=== PATIENT | female | born 1960 | race Caucasian/White ===

== ENCOUNTER 2016-06-26 08:43 | Inpatient (IN) | payer BC ==
[2016-06-26] MEDS ORDERED: NORMAL SALINE 10 ML SYRINGE FLUSH IVP PRN ×3 (08:49→14:13)
[2016-06-26] MEDS ORDERED: Sodium Chloride 0.9% 1,000 ML PRIMARY IV ONE (08:57)
[2016-06-26 09:10] LABS: BASOPHILS # (AUTO) 0.06 10*3/UL; BASOPHILS % (AUTO) 0.4 % (0-1); EOSINOPHILS # (AUTO) 0.02 10*3/UL; EOSINOPHILS % (AUTO) 0.1 % (0-8); HEMATOCRIT 38.7 % (37.0-47.0); LYMPHOCYTES # (AUTO) 1.53 10*3/uL; MEAN CORPUSCULAR HGB CONC 33.6 g/dL (33-37); MEAN CORPUSCULAR VOLUME 89.4 FL (81-99); MEAN PLATELET VOLUME 9.5 FL (7.4-12.2); MONOCYTES # (AUTO) 1.52 10*3/UL (0.3-0.8); MONOCYTES % (AUTO) 10.7 % (5-15); NEUTROPHILS # (AUTO) 11.09 10*3/UL; NEUTROPHILS % (AUTO) 77.9 % (50-80); RED BLOOD COUNT 4.33 10^6/uL (4.20-5.40)
[2016-06-26 09:17] LABS: BLOOD UREA NITROGEN 12 mg/dL (7-22); BUN/CREATININE RATIO 17.14 (6-20); CALCIUM 8.9 mg/dL (8.7-10.7); EST GLOMERULAR FILTRATION > 60 (>60 ml/min/1.73m(2)); SERUM ALBUMIN 3.8 g/dL (3.5-4.8)
[2016-06-26 09:19] LABS: PLATELET MORPHOLOGY COMMENT NORMAL MORPHOLOGY (NORM); RBC MORPHOLOGY COMMENT NORMAL MORPHOLOGY (NORM); WBC MORPHOLOGY COMMENT NORMAL MORPHOLOGY (NORM)
[2016-06-26] MEDS ORDERED: Sodium Chloride 0.9% 2,000 ML PRIMARY IV ONE (09:20)
[2016-06-26] MEDS ORDERED: cefTRIAXone Inj 1 GM in Sodium Chloride 0.9% 100 ML IV ONE (09:21)
[2016-06-26 09:41] LABS: CLARITY,URINE CLOUDY (CLEAR); COLOR,URINE YELLOW; URINE SAMPLE TYPE CLEAN CATCH URINE
[2016-06-26 09:42] LABS: BILIRUBIN,URINE SMALL (NEG); GLUCOSE, URINE (UA) NEGATIVE (NEG); NITRATE,URINE POSITIVE (NEG); OCCULT BLOOD,URINE LARGE (NEG); PROTEIN,URINE >300 mg/dl (NEG); RBC,URINE >100 /hpf; SQUAMOUS EPITHELIAL CELL,UR RARE; WBC,URINE >100
--- NOTE | 2016-06-26 09:42 | PDOC ---
Female Problem HPI - General Chief Complaint: Genitourinary Complaint Stated Complaint: POSS PYLO Date Seen by Provider: 06/26/16 Time Seen by Provider: 09:40 - History of Present Illness Initial Comments: This patient is a very nice 56-year-old woman who comes into the emergency department complaining of abdominal discomfort especially low in her abdomen also some flank pain some fever and increasing urinary cloudiness to the point of actually having urinary bleeding today as well. She has not had substantial urinary tract infections in the past but does feel that this is likely now. She denies any bowel changes. She denies any hematochezia or hematemesis or other concerning GI features. - Patient Home Medications Home Medications: Home Medications Aspirin/Acetaminophen/Caffeine [Excedrin Extra Strength Caplet] 2 each PO ASDIR PRN tab 01/10/16 Estrogen,Con/M-Progest Acet [Prempro 0.625-2.5 Mg Tablet] 1 tab PO DAILY #30 tab 01/17/16 Bisacodyl [Dulcolax] 5 mg PO PRN PRN 06/26/16 - Patient Allergies Allergies/Adverse Reactions: Allergies Allergy/AdvReac Type Severity Reaction Status Date / Time Penicillins Allergy Intermediate Rash/Hives Verified 06/26/16 09:13 Past Medical History - heen HEENT History: Dentures/Partials Cardiovascular History: Hyperlipidemia Respiratory History: Denies History Gastrointestinal History: Denies History Genitourinary History: Denies History Endocrine History: Denies History Musculoskeletal History: Back Pain Prosthesis or Implant: Yes (SPINE FUSED, LOWER BACK HW) Neurological History: Migraines Additional Neurological History: YESTERDAY MIGRAINE Blood Disorders: Denies History Psychiatric History: Denies History History of Sexually Transmitted Diseases: No Cancer History: Renal, Skin Cancer Treatment / Date(s) of Treatment: MALIGNANT MELONOMA-REMOVED History of MDRO: No History of Other Communicable Diseases: No Alcohol Use: None Substance Use Type: None Previous Surgical History: Yes Type / Date of Surgery: D&C/ VERTEBRAL FUSION X 3/ HARDWARE REMOVAL FROM BACK FUSION/ RIGHT RCR/ SKIN CA REMOVED Anesthesia Reactions: Yes (PONV) Malignant Hyperthermia: No Significant Family History: No pertinent family hx Past Medical History Reviewed: Reviewed - No Changes ROS - Limitations ROS Limitations: No Limitations Constitution: REPORTS: Denies Symptoms Cardiovascular: REPORTS: Denies Cardiac Symptoms Respiratory: REPORTS: Denies Resp Symptoms Neurological: REPORTS: Denies Neuro Symptoms Female Genitourinary Exam - General Appearance General Appearance: POSITIVE: Alert, Cooperative, No Acute Distress - HEENT HEENT: POSITIVE: Head Inspection Nml, Eyes Inspection Nml, Ears Inspection Nml - Neck Neck: POSITIVE: Normal Inspection, No Apparent Injury - Respiratory Respiratory: POSITIVE: No Respiratory Distress - Abdomen Abdomen: POSITIVE: Other (Low abdominal tenderness and CVA tenderness bilaterally) - Neurological / Psychological Neurological: POSITIVE: Affect Apporpriate, Oriented X3 Female Genitourinary Progress - Results Reviewed by me Lab Results Reviewed: Yes Lab Results:: Laboratory Results 06/26/16 06/26/16 06/26/16 Range/Units 09:00 09:05 09:22 WBC 14.25 H (4.8-10.8) 10^3/uL RBC 4.33 (4.20-5.40) 10^6/uL Hgb 13.0 (12.0-16.0) g/dL Hct 38.7 (37.0-47.0) % MCV 89.4 (81-99) FL MCH 30.0 (27-31) PG MCHC 33.6 (33-37) g/dL RDW Std Deviation 46.0 (39-50) fL RDW Coeff of [place] 14.3 (11.5-14.5) % Plt Count 235 (140-350) 10*3/uL MPV 9.5 (7.4-12.2) FL Immature Gran % (Auto) 0.2 (0-5) % Neut % (Auto) 77.9 (50-80) % Lymph % (Auto) 10.7 (10-50) % [place] % (Auto) 10.7 (5-15) % Eos % (Auto) 0.1 (0-8) % Baso % (Auto) 0.4 (0-1) % Immature Gran # (Auto) 0.03 10*3/UL Neut # (Auto) 11.09 10*3/UL Lymph # (Auto) 1.53 10*3/uL [place] # (Auto) 1.52 H (0.3-0.8) 10*3/UL Eos # (Auto) 0.02 10*3/UL Baso # (Auto) 0.06 10*3/UL WBC Morphology Comment Normal morphology (NORM) Plt Morphology Comment Normal morphology (NORM) RBC Morph Comment Normal morphology (NORM) PT 10.3 (9.7-11.4) secs INR 1.00 (0.00-5.90) N/A Sodium 137 (135-145) meq/L Potassium 3.6 L (3.8-5.2) meq/L Chloride 104 (98-112) meq/L Carbon Dioxide 20 L (23-33) meq/L Anion Gap 13 (5-20) BUN 12 (7-22) mg/dL Creatinine 0.7 (0.50-1.20) mg/dL Estimated GFR > 60 (>60 ml/min/1.73m(2)) BUN/Creatinine Ratio 17.14 (6-20) Glucose 127 H (78-110) mg/dL Calculated Osmolality 285.0 (267-292) mOsm/kg Lactic Acid 0.8 (0.70-2.10) MMOL/L Calcium 8.9 (8.7-10.7) mg/dL Total Bilirubin 0.8 (0.3-1.2) mg/dL AST 29 (8-39) IU/L ALT 40 (9-52) IU/L Alkaline Phosphatase 158 H (38-126) IU/L Total Protein 7.4 (6.1-8.0) g/dL Albumin 3.8 (3.5-4.8) g/dL Globulin 3.5 (2.50-4.10) g/dL Albumin/Globulin Ratio 1.00 L (1.3-2.0) mg/g Ur Collection Type Clean catch urine Urine Color Yellow Urine Clarity Cloudy (CLEAR) Urine pH 6.0 (5.0-8.5) Ur Specific [place] 1.010 (1.005-1.030) U Specif Grav (Refrac) 1.010 Urine Protein >300 (NEG) mg/dl Urine Glucose (UA) Negative (NEG) mg/dL Urine Ketones 15 (NEG) Urine Occult Blood Large (NEG) Urine Nitrate Positive H (NEG) Urine Bilirubin Small (NEG) Urine Urobilinogen 1.0 (0.2) mg/dL Ur Leukocyte Esterase Mo (NEG) Urine RBC >100 (NONE) /hpf Urine WBC >100 (NONE) Ur Squamous Epith Cells Rare (NONE) Ur Renal Epithelial Cell None (NONE) Urine Crystals None Urine Bacteria Moderate (NONE) Urine Casts None Urine Mucus Few (NONE) Urine Trichomonas None (NONE) Urine Yeast None (NONE) Urine HCG, Qual Negative - Patient's Progress MDM / ED Course: Patient appears to have substantial pyelonephritis with bilateral flank pain and low abdominal pain requiring some IV narcotic medication to control those symptoms. She also came in tachycardic but this is improved with a couple liters of fluid bolus. She started on Rocephin therapy as soon as her blood cultures and UA were taken. She has leukocytosis as well. I have discussed her case with the hospitalist who agrees to admit her to the hospital for further management. Patient Care Time - Estimated PCT Patient Care Time (In Minutes): 30 Vital Signs - Recent Vital Signs Vital Signs: Vital Signs (Last 8 hours) Temp Pulse Resp BP Pulse Ox 06/26/16 08:44 98.9 F 115 H 18 121/92 97 - VS Reviewed Vital Signs Reviewed: Yes Discharge Clinical Impression: Urinary tract infectious disease, Pyelonephritis Discharge Disposition: Admit to Inpatient Condition: Fair Follow Up With: BRONWYN CAZARES FNP [Primary Care Provider] - Date Decision to Admit to Inpatient: 06/26/16 Time Decision to Admit to Inpatient: 10:53
[2016-06-26 09:43] LABS: BACTERIA,URINE MODERATE
[2016-06-26] MEDS ORDERED: Potassium Chloride 20 mEq 20 MEQ in Premix 1 BAG IV ONE (09:43)
[2016-06-26] MEDS ORDERED: KETOROLAC 15 MG/1 ML VIAL IVP ONE (10:06)
[2016-06-26] MEDS ORDERED: MORPHINE SULFATE 4 MG/1 ML IVP ONE (10:06)
[2016-06-26] MEDS ORDERED: LIDOCAINE W/ SODIUM BICARB 0.5 ML SYR SUBD PRN (14:13)
--- NOTE | 2016-06-26 14:13 | PDOC ---
History and Physical - History of Present Illness Date and Time of Service: 06/26/2016 to 20 5 PM Chief Complaint: Cloudy urine of 6 days' duration, abdominal pain and back pain off 1-2 days duration History of Present Illness: This is a 56 years old female with no significant past medical history who came into the hospital with history of cloudy urine that started about 6 days ago in addition started to have abdominal pain and flank pain of 1-2 days duration in addition she did report more reddish urine since yesterday. Because of that she came into the ER. Evaluation suggested pyelonephritis and hence the admission. She denied vomiting, there is no diarrhea, there is no chest pain or shortness of breath. Past Medical History Medical History: History of for melanoma that was removed from her forearm Surgical History: 1. History of back surgery, fusion for scoliosis. 2. Rotator cuff repair. 3. Removal of melanoma 2000 Family History: Reviewed an Not Pertinent Past Social History: She is smoker smoke pack a day, occasionally drinks no drugs. Tobacco Use: Current Every Day Smoker Do you dip or chew tobacco: No Substance Use Type: None Alcohol Use: Occasionally Medication / Allergies Home Medications: Home Medications Medication Instructions Recorded Confirmed Type Aspirin/Acetaminophen/Caffeine 2 each PO ASDIR PRN tab 01/10/16 06/26/16 History [Excedrin Extra Strength Caplet] Bisacodyl [Dulcolax] 5 mg PO PRN PRN 06/26/16 06/26/16 History Allergies/Adverse Reactions: Allergies Allergy/AdvReac Type Severity Reaction Status Date / Time Penicillins Allergy Intermediate Rash/Hives Verified 06/26/16 13:46 Review of Systems - Review of Systems All Systems: Reviewed & No Additional Complaints Except as Stated Exam - Vitals Vital Signs: Vital Signs Temperature 99.8 F Temperature Source Temporal Artery Scan Pulse Rate [Pulse Oximeter] 84 Pulse Rate 103 Respiratory Rate 18 Blood Pressure [Left Arm] 126/83 Blood Pressure 122/87 Pulse Ox 96 Oxygen Delivery Method Room Air Height 5 ft 7 in Weight 158 lb 12.8 oz - General General Appearance: POSITIVE: No Acute Distress, Cooperative, Thin - Head Head Exam: POSITIVE: Normal Inspection, Atraumatic - Eye Eye Exam: POSITIVE: Normal Appearance - ENT ENT Exam: POSITIVE: Normal Exam - Neck Neck Exam: POSITIVE: Normal Inspection - Respiratory Respiratory Exam: POSITIVE: Clear to Auscultation - Bilaterally - Cardiovascular Cardiovascular Exam: POSITIVE: RRR - GI/Abdominal GI/Abdominal Exam: POSITIVE: Normal Bowel Sounds, Non Distended, Soft Additional GI/Abdominal Exam Details: CVA tenderness noted more on the left. Some lower minimal abdominal tenderness noted - Rectal Rectal Exam: POSITIVE: Deferred - External Exam: POSITIVE: Deferred Exam: POSITIVE: Deferred - Extremities Extremities Exam: POSITIVE: Normal Inspection - Back Back Exam: POSITIVE: Normal Inspection - Neurological Neurological Exam: POSITIVE: Alert, Oriented x 3, CN II-XII Intact, Moves All Extremities Equally - Psychiatric Psychiatric Exam: POSITIVE: Normal Affect - Integumentary Integumentary Exam: POSITIVE: Normal Color Results - Labs CBC and BMP: 06/26/16 09:00 06/26/16 09:00 Assessment and Plan - Patient Problems (1) Pyelonephritis Current Visit: Yes Status: Acute Comment: Patient was started on antibiotics, will continue antibiotics and pain medications and fluid and will wait for culture result. We'll also do CT of the abdomen to rule out stones.
[2016-06-26] MEDS ORDERED: oxyCODONE-ACETAMINOPHEN 5-325 TAB PO PRN (14:21)
[2016-06-26] MEDS: MORPHINE SULFATE 2 MG/1 ML IVP PRN (14:48)
[2016-06-26] MEDS: Sodium Chloride 0.9% 1,000 ML PRIMARY IV SCH ×3 (14:52→22:23)
[2016-06-26] MEDS ORDERED: ONDANSETRON 4 MG/2 ML VIAL IVP PRN (16:05)
[2016-06-26] MEDS ORDERED: Senna Tab 8.6 MG TAB PO PRN (16:06)
[2016-06-26] MEDS: DOCUSATE 100 MG CAPSULE PO SCH ×2 (16:46→20:29)
[2016-06-26] MEDS: MAGNESIUM 400 MG/5 ML - 30 ML (MILK OF MAGNESIA) PO PRN (16:46)
[2016-06-26] MEDS: Metoclopramide Inj 10 MG/2 ML VIAL IVP PRN (17:59)
[2016-06-26] MEDS: cefTRIAXone Inj 1 GM in Sodium Chloride 0.9% 100 ML IV SCH (22:26)
[2016-06-27] MEDS: KETOROLAC 15 MG/1 ML VIAL IVP SCH ×4 (01:15→19:02)
[2016-06-27] MEDS: MORPHINE SULFATE 2 MG/1 ML IVP PRN (01:15)
[2016-06-27] MEDS: Metoclopramide Inj 10 MG/2 ML VIAL IVP PRN (01:16)
[2016-06-27] MEDS: Sodium Chloride 0.9% 1,000 ML PRIMARY IV SCH ×3 (02:01→22:27)
[2016-06-27 05:39] LABS: BASOPHILS # (AUTO) 0.04 10*3/UL; BASOPHILS % (AUTO) 0.3 % (0-1); EOSINOPHILS # (AUTO) 0.04 10*3/UL; EOSINOPHILS % (AUTO) 0.3 % (0-8); HEMATOCRIT 32.8 % (37.0-47.0); HEMOGLOBIN 10.8 g/dL (12.0-16.0); LYMPHOCYTES # (AUTO) 1.99 10*3/uL; MEAN CORPUSCULAR HEMOGLOBIN 29.7 PG (27-31); MEAN CORPUSCULAR HGB CONC 32.9 g/dL (33-37); MEAN CORPUSCULAR VOLUME 90.1 FL (81-99); MEAN PLATELET VOLUME 9.7 FL (7.4-12.2); MONOCYTES # (AUTO) 1.62 10*3/UL (0.3-0.8); MONOCYTES % (AUTO) 13.6 % (5-15); NEUTROPHILS # (AUTO) 8.23 10*3/UL; NEUTROPHILS % (AUTO) 68.8 % (50-80); RED BLOOD COUNT 3.64 10^6/uL (4.20-5.40)
[2016-06-27 05:40] LABS: PLATELET MORPHOLOGY COMMENT NORMAL MORPHOLOGY (NORM); RBC MORPHOLOGY COMMENT NORMAL MORPHOLOGY (NORM); WBC MORPHOLOGY COMMENT NORMAL MORPHOLOGY (NORM)
[2016-06-27 08:06] LABS: BLOOD UREA NITROGEN 10 mg/dL (7-22); BUN/CREATININE RATIO 14.28 (6-20); EST GLOMERULAR FILTRATION > 60 (>60 ml/min/1.73m(2))
--- NOTE | 2016-06-27 09:37 | DI ---
CT ABDOMEN/PELVIS W/O CONTRAST,06/26/2016 2:12 PM: Clinical History: Flank pain and fever. Previous Exam: None at this facility. Findings: Multiple helically acquired CT images are obtained through the abdomen and pelvis without contrast, a nd demonstrate clear lungs. The liver, gallbladder, spleen, adrenals and visualized portions of the pancreas are unremarkable. There is a left renal stone measuring 9 x 5 mm within the inferior pole of the left kidney. This may be within the collecting system. Peripheral vascular calcifications are seen. There is no mesenteric nor retroperitoneal lymphadenopathy. There is no free air nor free fluid. Postsurgical changes are seen consistent with screw and plate fixation of the posterior thoracic spin e. There is no obstructive uropathy. The urinary bladder is unremarkable. The appendix is normal. Impression: 1. Left renal stone may be within the inferior left renal collecting system. There is no perinephric fat stranding or other findings to suggest acute pyelonephritis however, CT is less sensitive than ur inalysis.
[2016-06-27] MEDS: DOCUSATE 100 MG CAPSULE PO SCH ×2 (09:48→20:31)
[2016-06-27] MEDS: cefTRIAXone Inj 1 GM in Sodium Chloride 0.9% 100 ML IV SCH (10:29)
[2016-06-27] MEDS: MAGNESIUM 400 MG/5 ML - 30 ML (MILK OF MAGNESIA) PO PRN (10:34)
--- NOTE | 2016-06-27 12:10 | PDOC(PROG) ---
Interval History: Patient is doing the okay her blood pressure is trending down heart rates going up I believe she is in mild sepsis secondary to bacteremia and pyelonephritis denies chest pain nausea vomiting Objective : Data - Labs CBC and BMP: 06/27/16 05:26 06/27/16 05:26 Labs - Last 24 Hours: Laboratory Results 06/27/16 Range/Units 05:26 WBC 11.95 H (4.8-10.8) 10^3/uL RBC 3.64 L (4.20-5.40) 10^6/uL Hgb 10.8 L (12.0-16.0) g/dL Hct 32.8 L (37.0-47.0) % MCV 90.1 (81-99) FL MCH 29.7 (27-31) PG MCHC 32.9 L (33-37) g/dL RDW Std Deviation 46.2 (39-50) fL RDW Coeff of [place] 14.4 (11.5-14.5) % Plt Count 208 (140-350) 10*3/uL MPV 9.7 (7.4-12.2) FL Immature Gran % (Auto) 0.3 (0-5) % Neut % (Auto) 68.8 (50-80) % Lymph % (Auto) 16.7 (10-50) % [place] % (Auto) 13.6 (5-15) % Eos % (Auto) 0.3 (0-8) % Baso % (Auto) 0.3 (0-1) % Immature Gran # (Auto) 0.03 10*3/UL Neut # (Auto) 8.23 10*3/UL Lymph # (Auto) 1.99 10*3/uL [place] # (Auto) 1.62 H (0.3-0.8) 10*3/UL Eos # (Auto) 0.04 10*3/UL Baso # (Auto) 0.04 10*3/UL WBC Morphology Comment Normal morphology (NORM) Plt Morphology Comment Normal morphology (NORM) RBC Morph Comment Normal morphology (NORM) Sodium 136 (135-145) meq/L Potassium 3.8 (3.8-5.2) meq/L Chloride 106 (98-112) meq/L Carbon Dioxide 23 (23-33) meq/L Anion Gap 7 (5-20) BUN 10 (7-22) mg/dL Creatinine 0.7 (0.50-1.20) mg/dL Estimated GFR > 60 (>60 ml/min/1.73m(2)) BUN/Creatinine Ratio 14.28 (6-20) Glucose 99 (78-110) mg/dL Calculated Osmolality 280.0 (267-292) mOsm/kg Calcium 8.0 L (8.7-10.7) mg/dL Objective : Exam - General General Appearance: Cooperative - Head Head Exam: Normal Inspection, Normocephalic, Atraumatic - Eye Eye Exam: Normal Appearance, PERRL, EOMI - Respiratory Respiratory Exam: Clear to Auscultation - Bilaterally, Breathing Non Labored, Normal To Percussion, Normal to Percussion and Palpation - Cardiovascular Cardiovascular Exam: RRR, No Murmur, No Clicks, No Gallops - GI/Abdominal GI/Abdominal Exam: Non Tender, Non Distended, Soft - Extremities Extremities Exam: No Clubbing Present, No Edema Present, No Cyanosis Present - Neurological Neurological Exam: Alert, Oriented x 3, CN II-XII Intact - Psychiatric Psychiatric Exam: Normal Affect, Normal Mood Assessment and Plan - Patient Problems (1) Pyelonephritis Current Visit: Yes Status: Acute (2) Urinary tract infectious disease Current Visit: Yes Status: Acute (3) Bacteremia Current Visit: Yes Status: Acute - Assessment / Plan Additional Assessment/Plan Details: #1 urosepsis secondary to UTI #2 pyelonephritis #3 bacteremia I will transfer the patient to the ICU I will put her on vancomycin and Levaquin she is allergic to penicillin. Blood cultures were both positive for gram-negative rods sensitivities pending. We'll give her 1 bolus of IV fluids [address] scans were reviewed patient has a 9 x 5 mm stone in the collecting system no obstruction I spoke to Dr. Reagan urology at present time she does not need a stent if this does pass and gets stuck in the ureter she will need stenting in transfer we will be treating her here since [facility] is on and delivered had no lobe but no telemetry beds or beds whatsoever when I talked to the referral Center
[2016-06-27] MEDS ORDERED: cefTAZidime Inj 2 GM in Sodium Chloride 0.9% 100 ML IV SCH (12:30)
[2016-06-27] MEDS ORDERED: MAGNESIUM 400 MG/5 ML - 30 ML (MILK OF MAGNESIA) PO PRN (12:56)
[2016-06-27] MEDS ORDERED: NORMAL SALINE 10 ML SYRINGE FLUSH IVP PRN (12:56)
[2016-06-27] MEDS ORDERED: LIDOCAINE W/ SODIUM BICARB 0.5 ML SYR SUBD PRN (12:56)
[2016-06-27] MEDS ORDERED: Metoclopramide Inj 10 MG/2 ML VIAL IVP PRN (12:56)
[2016-06-27] MEDS ORDERED: ONDANSETRON 4 MG/2 ML VIAL IVP PRN (12:56)
[2016-06-27] MEDS ORDERED: MORPHINE SULFATE 2 MG/1 ML IVP PRN (12:56)
[2016-06-27] MEDS ORDERED: Senna Tab 8.6 MG TAB PO PRN (12:56)
[2016-06-27] MEDS ORDERED: Sodium Chloride 0.9% 1,000 ML PRIMARY IV ONE (14:03)
[2016-06-27] MEDS: cefTAZidime Inj 2 GM in Sodium Chloride 0.9% 100 ML IV SCH (20:31)
[2016-06-27] MEDS: oxyCODONE-ACETAMINOPHEN 5-325 TAB PO PRN (22:00)
[2016-06-27] MEDS ORDERED: NICOTINE 7 MG /DAY PATCH TRANSDERM ONE (22:58)
[2016-06-27] MEDS: NICOTINE 7 MG /DAY PATCH TRANSDERM SCH (23:35)
[2016-06-28] MEDS: KETOROLAC 15 MG/1 ML VIAL IVP SCH ×2 (01:00→07:25)
[2016-06-28] MEDS: oxyCODONE-ACETAMINOPHEN 5-325 TAB PO PRN (04:00)
[2016-06-28] MEDS: cefTAZidime Inj 2 GM in Sodium Chloride 0.9% 100 ML IV SCH (04:27)
[2016-06-28 05:52] LABS: BASOPHILS # (AUTO) 0.06 10*3/UL; BASOPHILS % (AUTO) 0.7 % (0-1); EOSINOPHILS % (AUTO) 1.1 % (0-8); HEMATOCRIT 30.5 % (37.0-47.0); HEMOGLOBIN 9.8 g/dL (12.0-16.0); LYMPHOCYTES # (AUTO) 2.29 10*3/uL; MEAN CORPUSCULAR HGB CONC 32.1 g/dL (33-37); MEAN CORPUSCULAR VOLUME 90.2 FL (81-99); MEAN PLATELET VOLUME 9.9 FL (7.4-12.2); MONOCYTES # (AUTO) 1.15 10*3/UL (0.3-0.8); MONOCYTES % (AUTO) 12.5 % (5-15); NEUTROPHILS # (AUTO) 5.57 10*3/UL; NEUTROPHILS % (AUTO) 60.6 % (50-80); RED BLOOD COUNT 3.38 10^6/uL (4.20-5.40)
[2016-06-28 05:57] LABS: PLATELET MORPHOLOGY COMMENT NORMAL MORPHOLOGY (NORM); RBC MORPHOLOGY COMMENT NORMAL MORPHOLOGY (NORM); WBC MORPHOLOGY COMMENT NORMAL MORPHOLOGY (NORM)
[2016-06-28 06:03] LABS: BLOOD UREA NITROGEN 10 mg/dL (7-22); BUN/CREATININE RATIO 16.66 (6-20); CALCIUM 7.8 mg/dL (8.7-10.7); EST GLOMERULAR FILTRATION > 60 (>60 ml/min/1.73m(2))
[2016-06-28 06:47] VITALS: RESP 16
[2016-06-28] MEDS: Sodium Chloride 0.9% 1,000 ML PRIMARY IV SCH (07:25)
[2016-06-28] MEDS ORDERED: Levofloxacin 750mg (Premix) 750 MG in Dextrose 1 BAG IV SCH (09:00)
[2016-06-28] MEDS ORDERED: POTASSIUM CHLORIDE 20 MEQ TAB PO SCH ×2 (09:00→21:00)
[2016-06-28] MEDS: NICOTINE 7 MG /DAY PATCH TRANSDERM SCH (09:07)
[2016-06-28] MEDS: DOCUSATE 100 MG CAPSULE PO SCH (09:07)
[2016-06-28 09:10] VITALS: TEMP 98.2
[2016-06-28] MEDS ORDERED: NORMAL SALINE 10 ML SYRINGE FLUSH IVP PRN (09:10)
[2016-06-28] MEDS ORDERED: Senna Tab 8.6 MG TAB PO PRN (09:10)
[2016-06-28] MEDS ORDERED: ONDANSETRON 4 MG/2 ML VIAL IVP PRN (09:10)
[2016-06-28] MEDS ORDERED: MORPHINE SULFATE 2 MG/1 ML IVP PRN (09:10)
[2016-06-28] MEDS ORDERED: MAGNESIUM 400 MG/5 ML - 30 ML (MILK OF MAGNESIA) PO PRN (09:10)
[2016-06-28] MEDS ORDERED: Metoclopramide Inj 10 MG/2 ML VIAL IVP PRN (09:10)
[2016-06-28] MEDS ORDERED: LIDOCAINE W/ SODIUM BICARB 0.5 ML SYR SUBD PRN (09:10)
[2016-06-28] MEDS ORDERED: oxyCODONE-ACETAMINOPHEN 5-325 TAB PO PRN (09:10)
[2016-06-28] MEDS ORDERED: cefTRIAXone Inj 2 GM in Sodium Chloride 0.9% 100 ML IV ONE (10:21)
--- NOTE | 2016-06-28 10:45 | DCSUMMARY ---
Hospitalization Summary Hospital Course: Final Discharge Diagnosis: Current Visit Problems Problem Status Priority Diagnosed Code Bacteremia Acute R78.81 Pyelonephritis Acute N12 Urinary tract infectious disease Acute N39.0 Diagnostic Data, Laboratory Data, and Procedures of Signifigance: Laboratory Results 06/26/16 06/26/16 06/26/16 Range/Units 09:00 09:05 09:22 WBC 14.25 H (4.8-10.8) 10^3/uL RBC 4.33 (4.20-5.40) 10^6/uL Hgb 13.0 (12.0-16.0) g/dL Hct 38.7 (37.0-47.0) % MCV 89.4 (81-99) FL MCH 30.0 (27-31) PG MCHC 33.6 (33-37) g/dL RDW Std Deviation 46.0 (39-50) fL RDW Coeff of [place] 14.3 (11.5-14.5) % Plt Count 235 (140-350) 10*3/uL MPV 9.5 (7.4-12.2) FL Immature Gran % (Auto) 0.2 (0-5) % Neut % (Auto) 77.9 (50-80) % Lymph % (Auto) 10.7 (10-50) % [place] % (Auto) 10.7 (5-15) % Eos % (Auto) 0.1 (0-8) % Baso % (Auto) 0.4 (0-1) % Immature Gran # (Auto) 0.03 10*3/UL Neut # (Auto) 11.09 10*3/UL Lymph # (Auto) 1.53 10*3/uL [place] # (Auto) 1.52 H (0.3-0.8) 10*3/UL Eos # (Auto) 0.02 10*3/UL Baso # (Auto) 0.06 10*3/UL WBC Morphology Comment Normal morphology (NORM) Plt Morphology Comment Normal morphology (NORM) RBC Morph Comment Normal morphology (NORM) PT 10.3 (9.7-11.4) secs INR 1.00 (0.00-5.90) N/A Sodium 137 (135-145) meq/L Potassium 3.6 L (3.8-5.2) meq/L Chloride 104 (98-112) meq/L Carbon Dioxide 20 L (23-33) meq/L Anion Gap 13 (5-20) BUN 12 (7-22) mg/dL Creatinine 0.7 (0.50-1.20) mg/dL Estimated GFR > 60 (>60 ml/min/1.73m(2)) BUN/Creatinine Ratio 17.14 (6-20) Glucose 127 H (78-110) mg/dL Calculated Osmolality 285.0 (267-292) mOsm/kg Lactic Acid 0.8 (0.70-2.10) MMOL/L Calcium 8.9 (8.7-10.7) mg/dL Total Bilirubin 0.8 (0.3-1.2) mg/dL AST 29 (8-39) IU/L ALT 40 (9-52) IU/L Alkaline Phosphatase 158 H (38-126) IU/L Total Protein 7.4 (6.1-8.0) g/dL Albumin 3.8 (3.5-4.8) g/dL Globulin 3.5 (2.50-4.10) g/dL Albumin/Globulin Ratio 1.00 L (1.3-2.0) mg/g Ur Collection Type Clean catch urine Urine Color Yellow Urine Clarity Cloudy (CLEAR) Urine pH 6.0 (5.0-8.5) Ur Specific [place] 1.010 (1.005-1.030) U Specif Grav (Refrac) 1.010 Urine Protein >300 (NEG) mg/dl Urine Glucose (UA) Negative (NEG) mg/dL Urine Ketones 15 (NEG) Urine Occult Blood Large (NEG) Urine Nitrate Positive H (NEG) Urine Bilirubin Small (NEG) Urine Urobilinogen 1.0 (0.2) mg/dL Ur Leukocyte Esterase Mo (NEG) Urine RBC >100 (NONE) /hpf Urine WBC >100 (NONE) Ur Squamous Epith Cells Rare (NONE) Ur Renal Epithelial Cell None (NONE) Urine Crystals None Urine Bacteria Moderate (NONE) Urine Casts None Urine Mucus Few (NONE) Urine Trichomonas None (NONE) Urine Yeast None (NONE) Urine HCG, Qual Negative 06/27/16 06/28/16 Range/Units 05:26 05:23 WBC 11.95 H 9.19 (4.8-10.8) 10^3/uL RBC 3.64 L 3.38 L (4.20-5.40) 10^6/uL Hgb 10.8 L 9.8 L (12.0-16.0) g/dL Hct 32.8 L 30.5 L (37.0-47.0) % MCV 90.1 90.2 (81-99) FL MCH 29.7 29.0 (27-31) PG MCHC 32.9 L 32.1 L (33-37) g/dL RDW Std Deviation 46.2 46.0 (39-50) fL RDW Coeff of [place] 14.4 14.4 (11.5-14.5) % Plt Count 208 201 (140-350) 10*3/uL MPV 9.7 9.9 (7.4-12.2) FL Immature Gran % (Auto) 0.3 0.2 (0-5) % Neut % (Auto) 68.8 60.6 (50-80) % Lymph % (Auto) 16.7 24.9 (10-50) % [place] % (Auto) 13.6 12.5 (5-15) % Eos % (Auto) 0.3 1.1 (0-8) % Baso % (Auto) 0.3 0.7 (0-1) % Immature Gran # (Auto) 0.03 0.02 10*3/UL Neut # (Auto) 8.23 5.57 10*3/UL Lymph # (Auto) 1.99 2.29 10*3/uL [place] # (Auto) 1.62 H 1.15 H (0.3-0.8) 10*3/UL Eos # (Auto) 0.04 0.10 10*3/UL Baso # (Auto) 0.04 0.06 10*3/UL WBC Morphology Comment Normal morphology Normal morphology (NORM) Plt Morphology Comment Normal morphology Normal morphology (NORM) RBC Morph Comment Normal morphology Normal morphology (NORM) PT (9.7-11.4) secs INR (0.00-5.90) N/A Sodium 136 139 (135-145) meq/L Potassium 3.8 3.5 L (3.8-5.2) meq/L Chloride 106 111 (98-112) meq/L Carbon Dioxide 23 22 L (23-33) meq/L Anion Gap 7 6 (5-20) BUN 10 10 (7-22) mg/dL Creatinine 0.7 0.6 (0.50-1.20) mg/dL Estimated GFR > 60 > 60 (>60 ml/min/1.73m(2)) BUN/Creatinine Ratio 14.28 16.66 (6-20) Glucose 99 104 (78-110) mg/dL Calculated Osmolality 280.0 286.0 (267-292) mOsm/kg Lactic Acid (0.70-2.10) MMOL/L Calcium 8.0 L 7.8 L (8.7-10.7) mg/dL Total Bilirubin (0.3-1.2) mg/dL AST (8-39) IU/L ALT (9-52) IU/L Alkaline Phosphatase (38-126) IU/L Total Protein (6.1-8.0) g/dL Albumin (3.5-4.8) g/dL Globulin (2.50-4.10) g/dL Albumin/Globulin Ratio (1.3-2.0) mg/g Ur Collection Type Urine Color Urine Clarity (CLEAR) Urine pH (5.0-8.5) Ur Specific [place] (1.005-1.030) U Specif Grav (Refrac) Urine Protein (NEG) mg/dl Urine Glucose (UA) (NEG) mg/dL Urine Ketones (NEG) Urine Occult Blood (NEG) Urine Nitrate (NEG) Urine Bilirubin (NEG) Urine Urobilinogen (0.2) mg/dL Ur Leukocyte Esterase (NEG) Urine RBC (NONE) /hpf Urine WBC (NONE) Ur Squamous Epith Cells (NONE) Ur Renal Epithelial Cell (NONE) Urine Crystals Urine Bacteria (NONE) Urine Casts Urine Mucus (NONE) Urine Trichomonas (NONE) Urine Yeast (NONE) Urine HCG, Qual History and Physical pertinent to Admission: Course of Hospitalization: This very nice 56-year-old female who was admitted to the hospital with a diagnosis of UTI with pyelonephritis and sepsis secondary to UTI. Before blood cultures were positive for Escherichia coli patient was treated with IV antibiotics did very well in the hospital with the IV fluids and antibiotics just today are stable no fevers patient is back to her normal self. Considering she has no comorbidities and she is doing so well consult with infectious disease Dr. Walt Glover the plan is I will give her 1 dose of ceftriaxone she has tolerated cephalosporins well without any signs of allergic reaction to give her a 24-hour steady state and then initiated therapy with 7 days of by mouth Levaquin 750 I did warn her about the possible tendon rupture I told her not to exercise or do anystrenuous exercise while she is on the antibiotic I also told her about the light sensitivity she will also have a follow-up with urology since she does have a kidney stone in the collecting system of the left kidney about 9 mm On the date of discharge, the patient was examined: Gen.: No acute distress, alert, nontoxic Heart: Regular rate and rhythm, no murmurs, clicks, gallops, or rubs Lungs: Clear to auscultation bilaterally, breathing is nonlabored Abdomen/GI: Normal tones on auscultation, soft, nontender, nondistended Musculoskeletal/extremities: No clubbing, cyanosis, or edema Vitals reviewed and are listed below Assessment and Plan: 1. As per discharge assessments above 2. Disposition: Home 3. Condition on discharge, stable and improved. 4. Diet: regular diet 5. Activities: resume normal activities 6. Follow-Up: 1. PCP 2. Urology appointment with Dr. Reagan July 03 at 11:30 in [place] 7. Medications at the Time of Discharge: 8. Time, care, counseling and coordination of care for this discharge is greater than 30 minutes. Exam - Vitals Vital Signs: Vital Signs Temperature 98.2 F Temperature Source Oral Pulse Rate [Pulse Oximeter] 76 Pulse Rate 69 Respiratory Rate 16 Blood Pressure [Left Arm] 127/97 Blood Pressure 122/87 Pulse Ox 94 Oxygen Delivery Method Room Air Height 5 ft 7 in Weight 77.564 kg Patient Problems - Patient Problem List (1) Pyelonephritis Current Visit: Yes Status: Acute (2) Urinary tract infectious disease Current Visit: Yes Status: Acute (3) Bacteremia Current Visit: Yes Status: Acute
[2016-06-28] MEDS ORDERED: cefTAZidime Inj 2 GM in Sodium Chloride 0.9% 100 ML IV SCH (12:30)
[2016-06-28] MEDS ORDERED: KETOROLAC 15 MG/1 ML VIAL IVP SCH (13:00)
[2016-06-28] MEDS ORDERED: DOCUSATE 100 MG CAPSULE PO SCH (21:00)
[2016-06-29] MEDS ORDERED: NICOTINE 7 MG /DAY PATCH TRANSDERM SCH (09:00)
[2016-06-29] MEDS ORDERED: LEVOFLOXACIN 500 MG TABLET PO SCH (09:00)
[2016-06-29] MEDS ORDERED: Patch Removal PATCH TRANSDERM SCH (09:00)
== END 2016-06-28 13:15 | disposition home or self-care (01) | DRG 690 ==
LOC: ER 08:43 → MED/SURG 10:51 → ICU 06-27 11:54 → MED/SURG 06-28 08:12
PROVIDERS: ADMIT Internal Medicine; ATTEND Internal Medicine
DX: N39.0 Urinary tract infection, site not specified (principal); R78.81 Bacteremia; N10 Acute pyelonephritis
CPT/HCPCS: 36415; 74176; 80048; 80053; 81001; 83605; 84703; 85025; 85610; 87040; 87077; 87088; 87186; 94761; 96361; 96365; 96375; 99285; J0696; J0713; J1885; J2270; J2405; J2765; J3370; J3480; J7030; J7050

== ENCOUNTER → 2016-06-26 | Outpatient (CLI) | payer BC | LOC: MOB LAB 08:27 | PROVIDERS: ATTEND Physician Assistant | DX: R30.0 Dysuria (principal); R10.84 Generalized abdominal pain | CPT/HCPCS: 87077; 87088; 87186 ==

== ENCOUNTER → 2016-11-21 | Outpatient (CLI) | payer BC ==
[2016-11-21 08:55] LABS: BASOPHILS # (AUTO) 0.19 10*3/UL; BASOPHILS % (AUTO) 2.4 % (0-1); EOSINOPHILS % (AUTO) 2.6 % (0-8); HEMATOCRIT 42.4 % (37.0-47.0); HEMOGLOBIN 14.2 g/dL (12.0-16.0); LYMPHOCYTES # (AUTO) 3.01 10*3/uL; MEAN CORPUSCULAR HEMOGLOBIN 30.1 PG (27-31); MEAN CORPUSCULAR HGB CONC 33.5 g/dL (33-37); MEAN CORPUSCULAR VOLUME 89.8 FL (81-99); MEAN PLATELET VOLUME 8.7 FL (7.4-12.2); NEUTROPHILS # (AUTO) 3.67 10*3/UL; NEUTROPHILS % (AUTO) 47.2 % (50-80); RED BLOOD COUNT 4.72 10^6/uL (4.20-5.40)
[2016-11-21 09:08] LABS: BLOOD UREA NITROGEN 15 mg/dL (7-22); BUN/CREATININE RATIO 16.66 (6-20); CALCIUM 9.1 mg/dL (8.7-10.7); CHOL/HDL RATIO 3.27 RATIO (0-4.0); EST GLOMERULAR FILTRATION > 60 (>60 ml/min/1.73m(2)); HDL CHOLESTEROL 58 mg/dL (40-150); SERUM ALBUMIN 3.9 g/dL (3.5-4.8); SERUM CHOLESTEROL 190 mg/dL (120-200)
[2016-11-21 09:09] LABS: PLATELET MORPHOLOGY COMMENT NORMAL MORPHOLOGY (NORM); RBC MORPHOLOGY COMMENT NORMAL MORPHOLOGY (NORM); WBC MORPHOLOGY COMMENT NORMAL MORPHOLOGY (NORM)
== END ==
LOC: LAB 08:38
PROVIDERS: ATTEND Physician Assistant Medical
DX: Z00.00 Encounter for general adult medical examination without abnormal findings (principal); Z72.0 Tobacco use
CPT/HCPCS: 36415; 80053; 80061; 84443; 85025